=== PATIENT | female | born 1970 | race Caucasian/White ===

== ENCOUNTER 2018-05-07 13:07 | Emergency (ER) | payer OTHER ==
[~2018-05-07] VITALS: Ht 162.6 cm; Wt 93.0 kg
[~2018-05-07 13:07] MED LIST: DULO30 PO; HYDCHL25; METO25 PO; METO50 PO; OMEP10ER
[2018-05-07] MEDS ORDERED: Depo-Testos200 MG/ML IM (13:19)
[2018-05-07] MEDS ORDERED: ATEN100 (13:19)
[2018-05-07] MEDS ORDERED: HYDCHL12.5 PO (13:19)
[2018-05-07] MEDS ORDERED: VITAMIN D250000 UNIT (13:19)
[2018-05-07] MEDS ORDERED: Zestril40 MG (13:20)
== END 2018-05-07 13:50 | disposition home or self-care (01) ==
LOC: ER 13:07
DX: M79.675 Pain in left toe(s) (principal); I10 Essential (primary) hypertension; F32.9 Major depressive disorder, single episode, unspecified; Z79.899 Other long term (current) drug therapy
CPT/HCPCS: 99282

== ENCOUNTER 2018-05-17 16:54 | Emergency (ER) | payer OTHER ==
[~2018-05-17] VITALS: Ht 160 cm; Wt 93.5 kg
[~2018-05-17 16:54] MED LIST changes: +ATEN100; +Depo-Testos200 MG/ML IM; +HYDCHL12.5 PO; +VITAMIN D250000 UNIT; +Zestril40 MG
[2018-05-17 17:53] LABS: BASOPHILS ABSOLUTE AUTO 0.07 K/mm3 (0.00-0.23); BASOPHILS PERCENT AUTO 1 % (0-2); EOSINOPHILS ABSOLUTE AUTO 0.18 K/mm3 (0.00-0.68); EOSINOPHILS PERCENT AUTO 2 % (0-6); Hemoglobin 16.3 g/dL (11.5-16.0); IMMATURE GRAN ABSOLUTE AUTO 0.01 K/mm3 (0.00-0.10); IMMATURE GRAN PERCENT AUTO 0 % (0-1); LYMPHOCYTES PERCENT AUTO 35 % (21-46); MONOCYTES ABSOLUTE AUTO 0.81 K/mm3 (0.16-1.47); MONOCYTES PERCENT AUTO 9 % (4-13); Mean Corpuscular HGB 30.5 pg (26.0-34.0); Mean Corpuscular Volume 90 fL (80-100); NEUTROPHILS ABSOLUTE AUTO 4.97 K/mm3 (1.96-9.15); NEUTROPHILS PERCENT AUTO 54 % (41-73); Platelet Count 316 K/mm3 (150-400); RDW Coefficient Variation 13.4 % (11.7-14.2); RDW Standard Deviation 43.8 fL (35.1-46.3); Red Blood Cell Count 5.34 M/mm3 (3.80-5.20); White Blood Cell Count 9.24 K/mm3 (4.00-11.30)
[2018-05-17 18:13] LABS: Alanine Aminotransfer (ALT/SGP 34 U/L (12-78); Albumin, Blood 3.8 g/dL (3.4-5.0); Albumin/Globulin Ratio 1.1 (0.8-1.8); Alk Phos 59 U/L (50-136); Anion Gap 7 mmol/L (6-16); Aspartate Aminotrans (AST/SGOT 22 U/L (12-37); Bilirubin, Total 0.5 mg/dL (0.1-1.0); Blood Urea Nitrogen 9 mg/dL (8-24); Bun/Creatinine Ratio 11.2 (12.0-20.0); CO2, Blood 28 mmol/L (21-32); Calcium, Blood 8.3 mg/dL (8.5-10.1); Chloride, Blood 105 mmol/L (98-108); Globulin, Blood 3.5 g/dL (2.2-4.0); Glomerular Filtration Rate >60 (60-); Glucose, Blood 107 mg/dL (70-99); Potassium, Blood 4.2 mmol/L (3.5-5.5); Sodium, Blood 140 mmol/L (136-145); Total Protein, Blood 7.3 g/dL (6.4-8.2); Troponin I <0.015 ng/mL (0.000-0.040)
[2018-05-17 18:17] LABS: Source, Urine Clean Catch
[2018-05-17 18:26] LABS: Appearance, Urine Clear (Clear); Bilirubin, Urine Neg (Neg); Blood, Urine Neg (Neg); Color, Urine Yellow (P-Yellow); Glucose Qualitative, Urine Neg (Neg); Ketones, Urine 1+ (Neg); Leukocyte Esterase, Urine 1+ (Neg); Nitrite, Urine Pos (Neg); Protein, Urine Neg (Neg); Urobilinogen, Urine 1+ (Normal)
[2018-05-17 18:34] LABS: Bacteria Many /hpf; Red Blood Cells, Urine Not Seen /hpf (0-2); Squamous Epithelial Cells Few /hpf (Few)
[2018-05-17] MEDS ORDERED: Norvasc5 MG PO (19:17)
== END 2018-05-17 19:41 | disposition home or self-care (01) ==
LOC: ER 16:54
PROVIDERS: Emergency Medicine
DX: R07.89 Other chest pain (principal); I10 Essential (primary) hypertension; F32.9 Major depressive disorder, single episode, unspecified; Z79.899 Other long term (current) drug therapy
CPT/HCPCS: 36415; 71046; 80053; 81001; 83880; 84484; 85025; 87077; 87086; 87186; 93005; 93010; 99285-25